=== PATIENT | male | born 1970 | race Caucasian/White ===

== ENCOUNTER → 2023-01-29 10:07 | Outpatient (CLI) | payer BC, SELFPAY ==
[2023-01-29 11:05] LABS: Add Manual Diff / Slide Review NO; Basophils Absolute Auto 100 /uL (0-100); Basophils Percent Auto 0.9 % (0-2); Eosinophils Absolute Auto 100 /uL (0-450); Eosinophils Percent Auto 2.7 % (2-4); Hematocrit 38.1 % (41-53); Hemoglobin 12.8 g/dL (13.5-17.5); Lymphocytes Absolute Auto 1200 /uL (1100-4500); Lymphocytes Percent Auto 22.9 % (25-40); Mean Corpuscular HGB Conc 33.7 % (30-36); Mean Corpuscular Hemoglobin 28.4 PG (26-34); Mean Corpuscular Volume 84.3 fL (80-100); Monocytes Absolute Auto 300 /uL (0-900); Monocytes Percent Auto 5.9 % (3-14); Neutrophils Absolute Auto 3600 /uL (1500-7000); Neutrophils Percent Auto 67.6 % (50-75); Platelet Count 197 X10^3/uL (150-400); Red Blood Cell Count 4.51 X10^6/uL (4.5-5.9); Red Cell Distribution Width 13.2 % (11.6-14.8); White Blood Cell Count 5.4 X10^3/uL (4.5-11.0)
[2023-01-29 11:17] LABS: HEMOLYSIS < 15 (0-50)
[2023-01-29 11:22] LABS: Alanine Aminotransferase 22 IU/L (<50); Albumin 4.3 g/dL (3.5-5.0); Albumin Globulin Ratio 1.3 (1.0-2.8); Alkaline Phosphatase 59 U/L (38-126); Aspartate Aminotransferase 24 IU/L (17-59); BUN Creatinine Ratio 17.1 (6-22); Bilirubin Total 0.4 mg/dL (0.2-1.3); Blood Urea Nitrogen 13 mg/dL (9-20); Calcium 9.5 mg/dL (8.4-10.2); Carbon Dioxide 27 mmol/L (22-32); Chloride 107 mmol/L (98-107); Cholesterol 196 mg/dL (140-199); Estimated Glomerular Filt Rate > 60 mL/min (>60); Globulin 3.2 g/dL (1.7-4.1); Glucose 102 mg/dL (70-100); HDL Cholesterol 71 mg/dL (40-60); LDL Cholesterol Calculated 109 mg/dL (<100); Potassium 4.7 mmol/L (3.4-5.1); Sodium 139 mmol/L (137-145); Total Protein 7.5 g/dL (6.3-8.2); Triglycerides 81 mg/dL (35-150)
[2023-01-29 11:25] LABS: Appearance Urine UA CLEAR; Bilirubin Urine UA NEGATIVE (NEGATIVE); Color Urine UA YELLOW; Glucose Urine UA NEGATIVE (Negative); Ketones Urine UA NEGATIVE (NEGATIVE); Leukocyte Esterase Urine UA NEGATIVE (NEGATIVE); Nitrite Urine UA NEGATIVE (Negative); Occult Blood Urine UA NEGATIVE (Negative); Protein Urine UA NEGATIVE (Negative); Specific Gravity Urine UA <=1.005 (1.000-1.035); Urobilinogen Urine UA 0.2 E.U./dL (0.2)
[2023-01-29 11:46] LABS: Bacteria Urine Occasional (0-1); Culture Indicated Urine Cult Not Indicated; RBC Urine 0-1/HPF (0-5/HPF); Squamous Epithelial Cell Urine 0-1 /HPF (0-5/HPF); WBC Urine 0-1/HPF (0-5/HPF)
[2023-01-29 11:47] LABS: Free T4, Direct Thyroxine 1.09 ng/dL (0.78-2.19)
[2023-01-29 12:01] LABS: Thyroid Stimulating Hormone 1.35 uIU/mL (0.47-4.68)
[2023-01-30 16:30] LABS: Prostate Specific Antigen 8.04 ng/mL (0.10-4.00)
== END ==
PROVIDERS: PCP Family Medicine; Referring Provider Family Medicine; Visit Provider Family Medicine
DX: Z00.00 Encounter for general adult medical examination without abnormal findings (principal); R35.0 Frequency of micturition; I48.0 Paroxysmal atrial fibrillation
CPT/HCPCS: 36415; 80053; 80061; 81001; 84153; 84439; 84443; 85025

== ENCOUNTER → 2023-02-22 16:10 | Outpatient (CLI) | payer BC, SELFPAY ==
[2023-02-22 18:51] LABS: Prostate Specific Antigen Scrn 7.56 ng/mL (0.1-4.0)
== END ==
PROVIDERS: PCP Family Medicine; Referring Provider Family Medicine; Visit Provider Family Medicine
DX: Z12.5 Encounter for screening for malignant neoplasm of prostate (principal); R97.20 Elevated prostate specific antigen [PSA]
CPT/HCPCS: 36415; G0103

== ENCOUNTER → 2023-04-26 16:06 | Outpatient (CLI) | payer OTHER, SELFPAY ==
[2023-05-01 07:13] LABS: PSA Free % 17.7 % (.); PSA, Total 5.7 ng/mL (0.0-4.0)
== END ==
LOC: LAB 16:07
PROVIDERS: PCP Family Medicine; Referring Provider Family Medicine; Visit Provider Family Medicine
DX: R97.20 Elevated prostate specific antigen [PSA] (principal)
CPT/HCPCS: 36415; 84153; 84154

== ENCOUNTER 2023-05-17 07:28 | Day surgery (SDC) | payer OTHER, SELFPAY ==
[2023-05-17 08:03] VITALS: BP 152/80; PULSE 57; RESP 16; TEMP 36.4; O2SAT 99
[2023-05-17] MEDS: LACTATED RINGERS 1,000 ML 42 ML IV (08:10)
--- NOTE | 2023-05-17 08:32 | PM.HP.1 ---
History of Present Illness History of Present Illness Date Patient Seen: 05/17/23 Time Patient Seen: 08:32 Chief complaint: Screening Colonoscopy Narrative: Heriberto is a 52-year-old man who presents for his first colonoscopy. He did have some mild anemia on labs in January. [facility] Medical History (Updated 05/17/23 @ 08:33 by Oh Covarrubias MD) Asthma (~1971) Allergies (~1971) Depression Chronic back pain Chicken pox (~1984) Recurrent sinusitis (~1979) Cataracts, bilateral Stomach discomfort Atrial fibrillation (~2016) Anemia Encounter for pre-operative cardiovascular clearance Elevated PSA, less than 10 ng/ml Anxiety Obstructive sleep apnea (~2016) GERD (gastroesophageal reflux disease) Family history of prostate cancer in father Well adult exam Social History Smoking Status: Never smoker alcohol intake: never Meds Home Medications and Allergies Home Medications Medication Instructions Recorded Confirmed Type lorazepam 0.5 mg tablet 0.5 mg PO BID PRN anxiety #20 tabs 02/14/23 05/17/23 Rx fluticasone propionate 110 2 inh inhalation Q12H Asthma #12 02/15/23 05/17/23 Rx mcg/actuation HFA aerosol inhaler grams (Flovent HFA) fluticasone propionate 50 1 spray intranasal DAILY PRN 02/15/23 05/17/23 Rx mcg/actuation nasal allergy symptoms #16 grams spray,suspension (Flonase Allergy Relief) omeprazole 20 mg capsule,delayed 20 mg PO BID Acid Reflux/Gird #180 02/15/23 05/17/23 Rx release caps tamsulosin 0.4 mg capsule 0.4 mg PO BEDTIME #90 caps 02/28/23 05/17/23 Rx sodium,potassium,mag sulfates 17.5 See Rx Instructions PO .COMPLEX 03/28/23 04/26/23 Rx gram-3.13 gram-1.6 gram oral soln #354 mL (Suprep Bowel Prep Kit) albuterol sulfate 90 mcg/actuation 2 puff inhalation Q6H PRN Anxiety 04/26/23 05/17/23 History aerosol inhaler Allergies Allergy/AdvReac Type Severity Reaction Status Date / Time erythromycin base Allergy Intermediate Vomiting Verified 05/17/23 07:59 Exam Vital Signs (past 8 hours): - 05/17/23 08:03 Temperature 97.6 F Pulse Rate 57 L Respiratory Rate 16 Blood Pressure 152/80 H Pulse Oximetry 99 Oxygen Delivery Method Room Air Oxygen Delivery Method Room Air Const General: healthy appearing Resp Effort & Inspection: normal respiratory effort Assessment & Plan Assessment and plan (1) Colon cancer screening: Status: Acute Plan We reviewed the risks and benefits of colonoscopy for colon cancer screening and he would like to proceed
--- NOTE | 2023-05-17 09:01 | PM.OP.COLON ---
Operative Date/Time/Diagnoses Date of procedure: 05/17/23 Time of procedure: 09:01 Pre-op diagnosis: Colon cancer screening Post-op diagnosis: same Procedure & Clinicians Study performed: Colonoscopy Same procedure as scheduled: Yes Surgeon: Oh Covarrubias Procedure Notes Procedure in detail: Surgeon: Oh Covarrubias MD Anesthesia: Shilpi Bernard CRNA Procedure: The patient was brought to the endoscopy suite, placed in left lateral decubitus position. The patient was connected to monitoring devices. A time-out was performed. Sedation was administered. Once the patient was adequately sedated, a digital rectal exam was performed and was normal. The scope was then inserted and advanced to the cecum where the appendiceal orifice was identified and photographed. The scope was then slowly withdrawn over greater than 6 minutes. The mucosa was thoroughly inspected. No abnormalities were found. The scope was retroflexed in the rectum. No abnormalities were seen. The scope was straightened and removed. The patient was awakened and brought to recovery. Scope withdrawal time: 8 minutes Sedation time: 13 minutes EBL: 0 Findings: Normal colon Post-procedure Recommendations: Colonoscopy in 10 years Disposition: PACU
[2023-05-17 09:04] VITALS: BP 106/56; PULSE 59; RESP 12; TEMP 36.3; O2SAT 96
[2023-05-17 09:09] VITALS: BP 108/59; PULSE 63; RESP 18; O2SAT 97
[2023-05-17 09:13] VITALS: BP 120/77; PULSE 63; RESP 12; TEMP 36.6; O2SAT 98
[2023-05-17 09:17] VITALS: BP 125/81; PULSE 59; RESP 16; O2SAT 98
== END 2023-05-17 09:27 | disposition home or self-care (01) ==
PROVIDERS: PCP Family Medicine; Referring Provider Surgery; Visit Provider Surgery
PROC: 0DJD8ZZ Inspection of Lower Intestinal Tract, Via Natural or Artificial Opening Endoscopic (ICD-10-PCS; CPT 45378; principal; 2023-05-17 08:15)
DX: Z12.11 Encounter for screening for malignant neoplasm of colon (principal); J45.909 Unspecified asthma, uncomplicated
CPT/HCPCS: G0121; J2704

== ENCOUNTER → 2023-06-04 09:58 | Outpatient (CLI) | payer OTHER, SELFPAY ==
[2023-06-06 08:35] LABS: PSA Free % 17.5 % (.)
== END ==
PROVIDERS: PCP Family Medicine; Referring Provider Specialist; Visit Provider Specialist
DX: N40.1 Benign prostatic hyperplasia with lower urinary tract symptoms (principal); N13.8 Other obstructive and reflux uropathy; R97.20 Elevated prostate specific antigen [PSA]
CPT/HCPCS: 36415; 84153; 84154

== ENCOUNTER → 2023-07-04 15:00 | Outpatient (CLI) | payer OTHER, SELFPAY ==
--- NOTE | 2023-07-04 15:01 | DI.MRI.S_ITS ---
PROCEDURE: MR PELIS WO/W CON INDICATIONS: Elevated PSA TECHNIQUE: Coronal HASTE, axial T1 FSE with fat saturation, 3-plane nonbreath-hold T2 FSE. After the administration of contrast, dynamic axial, delayed axial and coronal VIBE or 2-D FLASH with fat saturation through the pelvis. Diffusion weighted imaging and ADC was performed. COMPARISON: None. FINDINGS: Image quality: Diffusion weighted and dynamic contrast enhanced images are diagnostic. Prostate: Gland size is 3.5 x 4.2 x 4.8 cm; ellipsoid gland volume is 37 mL. PSA density 0.16. Lesion 1: Location: Right posterior peripheral zone of the mid gland to apex, on axial series 5, image 14 and coronal series 6, image 13. Size: 1.4 x 1.1 cm. T2W signal: Hypointense, non encapsulated. DWI signal: Markedly hyperintense. ADC signal: Markedly hypointense. Enhancement: Yes. Extracapsular extension: No. No neurovascular involvement. PI-RADS score: 4 Genitourinary system: Bladder wall thickness is normal. Distal ureters are non distended. Bowel and peritoneum: No pathologic free pelvic fluid. Inferior colon and small bowel loops are normal in caliber. Nodes and vessels: No pelvic or inguinal adenopathy by size criteria. Iliac vessels are normal in caliber. Soft tissues: No inguinal hernias. Bones: Marrow demonstrates normal overall signal, without lesions to suggest metastases. Suspected enchondroma of the right intratrochanteric femur. IMPRESSION: PI-RADS 4 lesion in the posterior transition zone of the mid gland to apex. No pelvic lymphadenopathy by size criteria. No aggressive osseous abnormality. Dictated by: Adán Tobin M.D. on 07/04/2023 at 16:45 Approved by: Adán Tobin M.D. on 07/04/2023 at 16:48
== END ==
LOC: MRI 15:01
PROVIDERS: PCP Family Medicine; Referring Provider Specialist; Visit Provider Specialist
DX: N40.1 Benign prostatic hyperplasia with lower urinary tract symptoms (principal); N13.8 Other obstructive and reflux uropathy; N42.9 Disorder of prostate, unspecified; R97.20 Elevated prostate specific antigen [PSA]; Z80.42 Family history of malignant neoplasm of prostate
CPT/HCPCS: 72197; A9579

== ENCOUNTER → 2023-10-27 09:32 | Outpatient (CLI) | payer BC, SELFPAY | LOC: LAB 09:32 | PROVIDERS: PCP Family Medicine; Referring Provider Specialist; Visit Provider Specialist | DX: N40.1 Benign prostatic hyperplasia with lower urinary tract symptoms (principal); N13.8 Other obstructive and reflux uropathy; R97.20 Elevated prostate specific antigen [PSA] | CPT/HCPCS: 36415; 84153; 84154 ==

== ENCOUNTER → 2024-02-15 10:34 | Outpatient (CLI) | payer BC, SELFPAY ==
[2024-02-16 09:09] LABS: PSA Free % 13.6 % (.); PSA, Total 8.8 ng/mL (0.0-4.0)
== END ==
PROVIDERS: PCP Family Medicine; Referring Provider Urology; Visit Provider Urology
DX: R97.20 Elevated prostate specific antigen [PSA] (principal); N40.1 Benign prostatic hyperplasia with lower urinary tract symptoms; N13.8 Other obstructive and reflux uropathy; Z80.42 Family history of malignant neoplasm of prostate
CPT/HCPCS: 36415; 84153; 84154

== ENCOUNTER → 2024-03-04 14:46 | Outpatient (CLI) | payer BC, SELFPAY ==
[2024-03-04 15:27] LABS: Add Manual Diff / Slide Review NO; Basophils Absolute Auto 0 /uL (0-100); Basophils Percent Auto 0.7 % (0-2); Eosinophils Absolute Auto 200 /uL (0-450); Hematocrit 37.1 % (41-53); Hemoglobin 12.4 g/dL (13.5-17.5); Lymphocytes Absolute Auto 1400 /uL (1100-4500); Mean Corpuscular HGB Conc 33.3 % (30-36); Mean Corpuscular Hemoglobin 28.2 PG (26-34); Mean Corpuscular Volume 84.5 fL (80-100); Monocytes Absolute Auto 300 /uL (0-900); Monocytes Percent Auto 5.9 % (3-14); Neutrophils Absolute Auto 3100 /uL (1500-7000); Neutrophils Percent Auto 61.4 % (50-75); Platelet Count 168 X10^3/uL (150-400); Red Blood Cell Count 4.39 X10^6/uL (4.5-5.9); Red Cell Distribution Width 13.4 % (11.6-14.8); White Blood Cell Count 5.1 X10^3/uL (4.5-11.0)
[2024-03-04 15:50] LABS: Alanine Aminotransferase 30 IU/L (<50); Albumin 4.4 g/dL (3.5-5.0); Albumin Globulin Ratio 1.6 (1.0-2.8); Alkaline Phosphatase 65 U/L (38-126); Aspartate Aminotransferase 37 IU/L (17-59); BUN Creatinine Ratio 13.5 (6-22); Bilirubin Total 0.4 mg/dL (0.2-1.3); Blood Urea Nitrogen 13 mg/dL (9-20); Calcium 9.5 mg/dL (8.4-10.2); Carbon Dioxide 30 mmol/L (22-32); Chloride 104 mmol/L (98-107); Estimated Glomerular Filt Rate > 60 mL/min (>60); Globulin 2.8 g/dL (1.7-4.1); Glucose 105 mg/dL (70-100); HEMOLYSIS < 15 (0-50); Potassium 4.5 mmol/L (3.4-5.1); Sodium 139 mmol/L (137-145); Total Protein 7.2 g/dL (6.3-8.2)
[2024-03-04 16:20] LABS: TSH w/ Reflex to FT4 3.18 uIU/mL (0.47-4.68)
== END ==
PROVIDERS: PCP Family Medicine; Referring Provider Physician Assistant; Visit Provider Physician Assistant
DX: R21 Rash and other nonspecific skin eruption (principal); J45.909 Unspecified asthma, uncomplicated; T78.40XA Allergy, unspecified, initial encounter; D64.9 Anemia, unspecified
CPT/HCPCS: 36415; 80053; 84443; 85025

== ENCOUNTER → 2024-05-21 14:09 | Outpatient (CLI) | payer BC, SELFPAY ==
[2024-05-23 11:40] LABS: PSA Free % 12.3 % (.); PSA, Total 8.4 ng/mL (0.0-4.0)
== END ==
PROVIDERS: PCP Family Medicine; Referring Provider Urology; Visit Provider Urology
DX: R97.20 Elevated prostate specific antigen [PSA] (principal); Z80.42 Family history of malignant neoplasm of prostate
CPT/HCPCS: 36415; 84153; 84154

== ENCOUNTER → 2025-02-19 10:28 | Outpatient (CLI) | payer BC, SELFPAY ==
[2025-02-22 07:36] LABS: PSA, Total 14.0 ng/mL (0.0-4.0)
== END ==
PROVIDERS: PCP Family Medicine; Referring Provider Urology; Visit Provider Urology
DX: N40.1 Benign prostatic hyperplasia with lower urinary tract symptoms (principal); N13.8 Other obstructive and reflux uropathy; R97.20 Elevated prostate specific antigen [PSA]
CPT/HCPCS: 36415; 84153; 84154